=== PATIENT | female | born 1985 | race Caucasian/White ===

== ENCOUNTER 2025-01-12 15:19 | Emergency (ER) | payer OTHER ==
[~2025-01-12] VITALS: Ht 172.7 cm; Wt 95.3 kg
--- NOTE | 2025-01-12 15:30 | NUR ---
ASSUME PATIENT CARE, IN BED C/O DIFFUSE ABDOMINAL PAIN W/ NAUSEA AND VOMITING SINCE LAST NIGHT AFTER EATING OUT, MULTIPLE EPISODES OF VOMITING SINCE THEN. PLACED ON MONITOR. VSS. AWAITINGMD EVAL.
--- NOTE | 2025-01-12 15:40 | NUR ---
DAVE GOLDMAN AT BEDSIDE FOR EVAL.
--- NOTE | 2025-01-12 15:49 | NUR ---
IV LINE STARTED BLOOD DRAWN AND SENT TO LAB.
[2025-01-12] MEDS ORDERED: PANTOPRAZOLE 40 MG VIAL ONE (15:51)
[2025-01-12] MEDS ORDERED: FAMOTIDINE/PF INJ 20 MG/2 ML VIAL IV ONE (15:52)
[2025-01-12] MEDS ORDERED: ONDANSETRON HCL/PF 4 MG/2 ML VIAL ONE (15:52)
[2025-01-12] MEDS: ONDANSETRON HCL/PF 4 MG/2 ML VIAL IV ONE (15:59)
[2025-01-12] MEDS: IV NS 0.9% 1,000 ML BAG IV ONE (15:59)
[2025-01-12] MEDS: PANTOPRAZOLE 40 MG VIAL IV ONE (16:02)
[2025-01-12] MEDS: FAMOTIDINE/PF INJ 20 MG/2 ML VIAL IV ONE (16:16)
[2025-01-12 16:29] LABS: PLATELET COUNT (AUTO) 201 K/uL (150-450); RED BLOOD CELL COUNT(AUTO) 4.90 MIL/uL (4.0-5.2); RED CELL DISTRIBUTION WIDTH 14.4 % (11.5-15.0); WHITE BLOOD COUNT (AUTO) 10.4 K/uL (4.3-11.0)
[2025-01-12] MEDS ORDERED: DICYCLOMINE HCL 10 MG CAPSULE PO ONE (16:31)
[2025-01-12] MEDS ORDERED: ACETAMINOPHEN 325 MG TABLET ONE (16:31)
[2025-01-12] MEDS: DICYCLOMINE HCL 10 MG CAPSULE PO ONE (16:35)
[2025-01-12] MEDS: ACETAMINOPHEN 325 MG TABLET PO ONE (16:38)
[2025-01-12 16:46] LABS: CALCIUM, SERUM 9.9 mg/dL (8.5-10.1); CREATININE 0.8 mg/dL (0.6-1.3); SODIUM SERUM 139.0 mmol/L (136-145); UREA NITROGEN, BLOOD 18.0 mg/dL (7-18)
[2025-01-12 16:52] LABS: ASPARTATE AMINOTRANSFERASE 23.0 U/L (15-37); TOTAL PROTEIN, SERUM 8.0 g/dL (6.4-8.2)
[2025-01-12 17:16] LABS: APPEARANCE,URINE CLEAR (CLEAR); BLOOD, URINE NEGATIVE Ery/uL (NEGATIVE); LEUKOCYTE ESTERASE ,URINE TRACE (NEGATIVE); NITRITE, URINE NEGATIVE (NEGATIVE); PREGNANCY TEST URINE QUAL NEGATIVE (NEGATIVE); UGLUCOSE NEGATIVE (NEGATIVE)
[2025-01-12 17:19] LABS: ADD URINE CULTURE YES; SQUAMOUS EPITHELIAL CELL,UR 21-50 /HPF (None Seen)
[2025-01-12] MEDS ORDERED: ONDA4TAB5 PO (17:24)
[2025-01-12] MEDS ORDERED: DICY10CA37 PO (17:24)
[2025-01-12] MEDS ORDERED: TYL2T PO (17:24)
[2025-01-12 17:30] VITALS: BP 130/80; TEMP 98.6; O2SAT 100
--- NOTE | 2025-01-12 17:30 | NUR ---
IV removed. Catheter intact and site benign. Pressure and 4x4 applied to site. No bleeding noted. Patient discharged to home in stable condition. Written and verbal after care instructions given. Patient verbalizes understanding of instruction.
== END 2025-01-12 17:32 | disposition home or self-care (01) ==
LOC: ER 15:36
DX: K52.9 Noninfective gastroenteritis and colitis, unspecified (principal); R11.2 Nausea with vomiting, unspecified; Z90.49 Acquired absence of other specified parts of digestive tract; Z98.84 Bariatric surgery status; Z91.048 Other nonmedicinal substance allergy status
CPT/HCPCS: 99284; 96374; 96375; 96361; 85025; 80048; 87086; 83690; 80076; 84703; 81001; 36415; J1308; J2405; J7030; J2470